=== PATIENT | female | born 1985 | race American Indian/Alaskan Native ===

== ENCOUNTER 2019-12-21 09:18 | Emergency (ER) | payer SELFPAY ==
[2019-12-21 10:15] VITALS: BP 94/53
[2019-12-21] MEDS ORDERED: NEOMY 3.5 MG/BACIT 400 UNITS/POLY B 5000 UNITS/GM OINT PACKET TP ONE (12:34)
--- NOTE | 2019-12-21 12:35 | Emergency Department Report ---
Minor Respiratory - HPI Chief Complaint: Upper Respiratory Infection Stated Complaint: FLU SYM Time Seen by Provider: 12/21/19 11:24 Duration: 3 Days Pain Location: Nose Severity: moderate Minor Respiratory: Yes Rhinorrhea, Yes Able to Tolerate Fluids, Yes Cough, Yes Sick Contacts, No Sore Throat, No Ear Pain, No Hemoptysis, No Chest Pain, No Shortness of Breath, No Fever Other History: This is a 34-year-old -[place] female who presents to the emergency room with myalgia, course, cough, and nosebleed for 2-3 days. Patient states she used her friend albuterol inhaler with minimal improvement of symptoms. She also is taking cold and flu medication. Patient states last taken medication 6 hours prior to arrival. She denies nausea, vomiting, diarrhea, abdominal pain, wheezing, or shortness of breath. ED Review of Systems ROS: Stated complaint: FLU SYM Other details as noted in HPI Constitutional: chills. denies: fever ENT: throat pain, epistaxis, congestion. denies: ear pain Respiratory: cough. denies: shortness of breath, wheezing Cardiovascular: denies: chest pain, palpitations Gastrointestinal: denies: abdominal pain, nausea, diarrhea Genitourinary: denies: urgency, dysuria, discharge Musculoskeletal: myalgia. denies: back pain, joint swelling, arthralgia Skin: denies: rash, lesions Neurological: denies: headache, weakness, paresthesias Psychiatric: denies: anxiety, depression Hematological/Lymphatic: denies: easy bleeding, easy bruising ED Past Medical Hx - Surgical History Additional Surgical History: LUMPECTOMY/ EAR SURG FOR RUPTURED EAR DRUM. ADENOIDS REMOVED - Social History Smoking Status: Unknown if ever smoked - Medications Home Medications: Home Medications Medication Instructions Recorded Confirmed Last Taken Type Amoxicillin/Potassium Clav 1 each PO BID #10 tablet 12/21/19 Unknown Rx [Augmentin 875-125 Tablet] Benzonatate [Tessalon Perles] 100 mg PO Q8HR PRN #30 capsule 12/21/19 Unknown Rx Fluticasone [Flonase] 1 spray NS QDAY #1 bottle 12/21/19 Unknown Rx Minor Respiratory Exam - Exam General: Vital signs noted. No distress. Alert and acting appropriately. HEENT: Yes Moist Mucous Membranes, Yes Rhinorrhea (dry blood present at anterior right nare. Nares patent bilaterally. Left nasal mucosa pink and well hydrated. Septum midline without lesions, perforation, or deformity. No foreign bodies bilaterally.), No Pharyngeal Erythema, No Pharyngeal Exudates, No Conjuctival Injection, No Frontal Tenderness, No Maxillary Tenderness Ear: Neither TM Bulge, Neither TM Erythema, Neither EAC Pain, Neither EAC Discharge Neck: Yes Supple, No Adenopathy Lungs: Yes Good Air Exchange, No Wheezes, No Ronchi, No Stridor, No Cough, No Labored Respirations, No Retractions, No Use of Accessory Muscles, No Other Abnormal Lung Sounds Heart: Yes Regular, No Murmur Abdomen: Yes Normal Bowel Sounds, No Tenderness, No Peritoneal Signs Skin: No Rash, No Edema Neurologic: Alert and oriented, no deficits. Musculoskeletal: Unremarkable. ED Course Vital Signs 12/21/19 09:29 Temperature 98.6 F Pulse Rate 88 Respiratory 20 Rate Blood Pressure 94/53 O2 Sat by Pulse 99 Oximetry ED Medical Decision Making - Medical Decision Making 34 y.o. female that presents with coryza, fever, myalgia, cough, and epistaxis for 3 days. Patient examined by me and stable. VSS and patient in no acute distress. No history of immunocompromise. Nontoxic appearance. Patient no trismus, no airway compromise. There is patent dry blood to anterior right nare. Nares patent bilaterally. Left nasal mucosa pink and well hydrated. Septum midline without lesions, perforation, or deformity. No foreign bodies bilaterally. Patient instructed to blow and clots came out of right nare. Triple antibiotic ointment applied to right nare. Patient monitored for 1 hour and no signs of bleeding. Given History and Exam I have low suspicion for cause of a posterior nose bleed or foreign body. Start short course of antibiotics, NSAIDs, cough suppressant, and decongestant. Reviewed ER plan with patient. Discharge home with prompt outpatient PCP follow up; return precautions discussed. Critical care attestation.: If time is entered above; I have spent that time in minutes in the direct care of this critically ill patient, excluding procedure time. ED Disposition Clinical Impression: Anterior epistaxis, Cough in adult Upper respiratory infection Qualifiers: URI type: acute nasopharyngitis (common cold) Qualified Code(s): J00 - Acute nasopharyngitis [common cold] Disposition: TO HOME OR SELFCARE Is pt being admited?: No Condition: Stable Instructions: Epistaxis (ED), Upper Respiratory Infection (ED), Cold Symptoms (ED) Additional Instructions: If her nose begins to bleed again sit with your head leaned forward and pinched the bridge of your nose for 15 minutes. If urinalysis does not stop bleeding return to the emergency room immediately. Apply 1 spray of Flonase in each nostril once daily and then apply triple antibiotic ointment inside of both nostrils. Continue taking [id number] cold and flu medication to improve your upper respiratory symptoms. I have also provided a list of primary care doctors for follow-up with. If you have worsening symptoms return to the emergency room as soon as possible. Prescriptions: Amoxicillin/Potassium Clav [Augmentin 875-125 Tablet] 1 each PO BID #10 tablet Fluticasone [Flonase] 1 spray NS QDAY #1 bottle Benzonatate [Tessalon Perles] 100 mg PO Q8HR PRN #30 capsule PRN Reason: Cough Referrals: VALENTÍN AU MD [Staff Physician] - 3-5 Days HUGO DAVE DO [Staff Physician] - 3-5 Days [facility] [Outside] - 3-5 Days [facility] [Outside] - 3-5 Days Forms: Work/School Release Form(ED) Time of Disposition: 13:49
== END 2019-12-21 14:29 | disposition home or self-care (01) ==
LOC: ED 09:18
DX: J06.9 Acute upper respiratory infection, unspecified (principal); R04.0 Epistaxis; Z79.899 Other long term (current) drug therapy
CPT/HCPCS: A6250